=== PATIENT | male | born 1935 | race Caucasian/White ===

== ENCOUNTER 2017-12-02 12:06 | Outpatient (CLI) | payer MEDICARE, OTHER, SELFPAY ==
[2017-12-02 13:08] LABS: Anion Gap 8.7 mmol/L (3-11); BUN 27 mg/dL (7-18); CO2 27.3 mmol/L (21.0-32.0); CREATININE 1.62 mg/dL (0.70-1.30); Calcium 9.5 mg/dL (8.5-10.1); Chloride 106 mmol/L (98-107); Glucose 89 mg/dL (70-100); Magnesium 2.1 mg/dL (1.8-2.4); Potassium 4.3 mmol/L (3.5-5.1); Sodium 142 mmol/L (136-145)
[2017-12-02 14:18] LABS: PROTEIN 19.2 mg/dL
[2017-12-02 14:20] LABS: COMMENT (LAB VIEW ONLY) 135.09 mg/dL; Prot/Crea Ur Ratio 0.14
[2017-12-02 16:11] LABS: Hemoglobin A1C 5.9 % (4.5-6.2)
== END 2017-12-02 12:26 ==
PROVIDERS: PCP Family Medicine; Visit Provider Family Medicine
DX: N18.3 Chronic kidney disease, stage 3 (moderate) (principal)
CPT/HCPCS: 36415; 80048; 82565; 83036; 83735; 84156

== ENCOUNTER 2018-05-25 09:43 | Outpatient (CLI) | payer MEDICARE, OTHER, SELFPAY ==
[2018-05-25 15:00] LABS: BUN 26 mg/dL (7-18); CREATININE 1.66 mg/dL (0.70-1.30); Calcium 9.3 mg/dL (8.5-10.1); Chloride 104 mmol/L (98-107); Estimated GFR 39.96 (mL/min/1.73m2); Glucose 110 mg/dL (70-100); Potassium 4.2 mmol/L (3.5-5.1); Sodium 142 mmol/L (136-145); TSH (W/Ref FT4) 1.99 uIU/mL (0.358-3.74)
== END 2018-05-25 10:03 ==
PROVIDERS: PCP Family Medicine; Visit Provider Family Medicine
DX: N18.3 Chronic kidney disease, stage 3 (moderate) (principal); E03.9 Hypothyroidism, unspecified
CPT/HCPCS: 36415; 80048; 84443

== ENCOUNTER 2018-12-01 10:39 | Outpatient (CLI) | payer MEDICARE, SELFPAY ==
[2018-12-01 11:06] LABS: BUN 24 mg/dL (7-18); CREATININE 1.55 mg/dL (0.70-1.30); Calcium 9.4 mg/dL (8.5-10.1); Chloride 106 mmol/L (98-107); Estimated GFR 43.14 (mL/min/1.73m2); Glucose 101 mg/dL (70-100); Potassium 5.3 mmol/L (3.5-5.1); Sodium 142 mmol/L (136-145)
== END 2018-12-01 10:59 ==
PROVIDERS: PCP Family Medicine; Visit Provider Family Medicine
DX: N18.3 Chronic kidney disease, stage 3 (moderate) (principal)
CPT/HCPCS: 36415; 80048

== ENCOUNTER 2019-03-24 09:26 | Emergency (ER) | payer MEDICARE, SELFPAY ==
[2019-03-24] VITALS (44 sets, daily range): BP systolic 146–179; BP diastolic 48–114; PULSE 40–58; RESP 10–24; TEMP 36.9; O2SAT 91–96
[2019-03-24] MEDS: Mylanta Suspension 30 ML CUP PO (09:53)
[2019-03-24 09:54] LABS: Abs Immature Grans 0.03 k/cumm (0.0-0.09); Absolute Basophil Count 0.04 k/cumm (0.0-0.2); Absolute Lymphocyte Count 1.95 k/cumm (1.2-3.4); Absolute Monocyte Count 0.59 k/cumm (0.11-0.7); Basophils % 0.4; Eosinophils % 0.4; HCT 44.6 % (40.0-50.0); HGB 14.8 g/dL (13.5-17.5); Immature Grans % 0.3 %; Lymphocytes % 17.5; Mean Corp. HGB Concentration 33.2 g/dL (32.0-36.0); Mean Corpuscular Hemoglobin 31.4 pg (27.0-33.0); Mean Corpuscular Volume 94.5 fL (80-95); Mean Platelet Volume 9.4 fL (8.0-11.0); Monocytes % 5.3; Neutrophils % 76.1; Platelet Count 200 x1000/uL (130-400); RBC 4.72 m/cumm (4.50-6.00); RBC Distribution Width 13.8 % (11.8-14.1); White Blood Cell Count 11.16 k/cumm (4.4-10.8)
[2019-03-24 09:55] LABS: Absolute Eosinophil Count 0.04 k/cumm (0.0-0.7); Absolute Neutrophil Count 8.49 k/cumm (1.2-6.7)
[2019-03-24] MEDS: Normal Saline 1,000 ML 125 ML IV (10:00)
--- NOTE | 2019-03-24 10:09 | W.ED.GENAD ---
Discharge Plan Discharge Details Chief Complaint: Chest Pain Primary Care Provider: Vineet Ramos ED Provider: Mo Mir Home Meds and New Rx's Prescriptions: No Action ibuprofen 200 mg tablet 400 mg PO TID-QID PRNRF: 0 triamcinolone acetonide 0.1 % cream 1 applic TP BID RF: 0 clopidogrel [Plavix] 75 mg tablet 75 mg PO DAILY Qty: 90 RF: 3 multivitamin [Daily Multi-Vitamin] 1 EACH tablet 1 ea PO DAILY RF: 0 diphenhydramine HCl [Benadryl Allergy] 25 MG tablet 25 mg PO HS PRNRF: 0 fluticasone propionate [Flonase Allergy Relief] 9.9 ML spray,suspension 1 - 2 spray NS DAILY Qty: 1 RF: 0 albuterol sulfate [ProAir HFA] 8.5 GM HFA aerosol inhaler 1 - 2 puff Inhalation Q4H PRN Qty: 1 RF: 0 metformin 500 MG tablet 500 mg PO DAILY Qty: 180 RF: 6 Cutar 7.5 % emulsion 1 applic TP DAILY RF: 0 ketoconazole 2 % cream 1 applic TP BID RF: 0 losartan 50 mg tablet 50 mg PO DAILY Qty: 90 RF: 3 levothyroxine 50 mcg tablet 50 mcg PO DAILY Qty: 90 RF: 3 pravastatin 40 mg tablet 40 mg PO DAILY Qty: 90 RF: 3 Medical Decision Making 83-year-old gent with a past medical history which includes diabetes and a previous vascular event but with no known history of CAD presents via EMS with persistent chest pain since 0100. Of note, he has been noncompliant with almost all of his chronic medications except for his thyroid medication chest pain somewhat positional nature and on exam has reproducible epigastric tenderness. Otherwise nonfocal exam. 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 Labs significant for an elevated troponin. No significant change in pain with oral Mylanta, aspirin, sublingual nitroglycerin, then a nitroglycerin infusion. He later had mild improvement of symptoms with IV fentanyl. Treated empirically with heparin infusion/bolus and oral clopidogrel load (300mg). Had episodes of bradycardia with no significant change in blood pressure or mentation. Reviewed case with cardiology at [facility] and accepted for emergent transfer/catheterization. Medical Records Medical records reviewed: Yes I reviewed the patient's medical records. Lab Data Lab results reviewed: Yes I reviewed the patient's lab results. Labs: Short CBC 03/24/19 Range/Units 09:45 WBC 11.16 H (4.4-10.8) k/cumm Hgb 14.8 (13.5-17.5) g/dL Hct 44.6 (40.0-50.0) % Plt Count 200 (130-400) x1000/uL BMP 03/24/19 09:45 Sodium 142 Potassium 4.0 Chloride 105 Carbon Dioxide 28.0 BUN 21 H Creatinine 1.41 H Glucose 135 H Calcium 9.9 Cardiac Enzymes 03/24/19 Range/Units 09:45 Troponin I 7.61 H* (<0.06) ng/Ml Liver Function 03/24/19 Range/Units 09:45 Total Bilirubin 0.5 (0.2-1.0) mg/dL AST 56 H (15-37) U/L ALT 35 (16-63) U/L Alkaline Phosphatase 75 (46-116) U/L Albumin 3.8 (3.4-5.0) g/dL ECG Data Attestation: I personally reviewed and interpreted this ECG (s) as follows: Interpretation: Sinus bradycardia, 55 bpm, LAFB. HPI 83-year-old gentleman with a past medical history with a past medical history which includes diabetes, hypertension, CKD, and obesity. He has no known history of CAD. He has a history of intermittent atypical chest/upper abdominal pain which has been intermittent and self-limited. Presents today with persistent waxing and waning pain in the same location which started at 0100. Pain is worse when lying supine and improves when upright. He also occasionally has had increased pain with inspiration. He had intermittent radiation towards the back with initial onset of symptoms. He denies palpitations, dyspnea, diaphoresis, atypical leg pain or swelling, or generalized abdominal pain. He has had no recent change in bowel habits, melena, hematochezia. General Date/Time Provider Initiated Documentation: 03/24/19 09:42. Related Data Home Medications Medication Instructions Recorded Confirmed multivitamin [Daily Multiple 1 ea PO DAILY 06/01/12 03/24/19 Vitamin] diphenhydramine HCl [Benadryl 25 mg PO HS PRN 01/13/15 03/24/19 Allergy] albuterol sulfate [Proair Hfa] 1 - 2 puff INHALATION Q4H PRN #1 04/21/17 03/24/19 inhaler fluticasone propionate [Flonase 1 - 2 spray NS DAILY #1 bottle 04/21/17 03/24/19 Allergy Relief] metformin 500 mg PO DAILY #180 tab-cap 08/29/17 03/24/19 coal tar 7.5 % topical emulsion 1 applic TP DAILY 01/05/18 03/24/19 ketoconazole 2 % topical cream 1 applic TP BID 01/05/18 03/24/19 losartan 50 mg tablet 50 mg PO DAILY #90 tab-cap 03/05/18 03/24/19 levothyroxine 50 mcg tablet 50 mcg PO DAILY #90 tab 04/24/18 03/24/19 pravastatin 40 mg tablet 40 mg PO DAILY #90 tab-cap 04/24/18 03/24/19 ibuprofen 200 mg tablet 400 mg PO TID-QID PRN tab 06/01/18 03/24/19 triamcinolone acetonide 0.1 % 1 applic TP BID 06/01/18 03/24/19 topical cream clopidogrel 75 mg tablet 75 mg PO DAILY #90 tab-cap 12/01/18 03/24/19 Previous Rx's Medication Instructions Recorded albuterol sulfate [Proair Hfa] 1 - 2 puff INHALATION Q4H PRN #1 04/21/17 inhaler fluticasone propionate [Flonase 1 - 2 spray NS DAILY #1 bottle 04/21/17 Allergy Relief] metformin 500 mg PO DAILY #180 tab-cap 08/29/17 losartan 50 mg tablet 50 mg PO DAILY #90 tab-cap 03/05/18 levothyroxine 50 mcg tablet 50 mcg PO DAILY #90 tab 04/24/18 pravastatin 40 mg tablet 40 mg PO DAILY #90 tab-cap 04/24/18 clopidogrel 75 mg tablet 75 mg PO DAILY #90 tab-cap 12/01/18 Allergies Allergy/AdvReac Type Severity Reaction Status Date / Time benazepril AdvReac Intermediate COUGH Verified 03/24/19 09:32 lisinopril [From Zestoretic] AdvReac Intermediate GI pain Verified 03/24/19 09:32 General Stated Complaint: Chest Pain JERRY: 2 Review of Systems All systems reviewed & are unremarkable except as noted in HPI and below PFSH Medical History Abnormal blood sugar (Chronic 06/07/16) h/o diabetic level BS and A1c 2015 Actinic keratosis (Resolved 10/08/11) Dr Motta, LN2 11/2014 Diabetes mellitus (Chronic) Diplopia (Resolved 03/28/15) 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 torn meniscus Delfina Lower urinary tract symptoms (LUTS) (Chronic) WENDY 03/24/15 Morbid obesity (Chronic 03/17/89) BMI 39 Paresthesias in left hand (Resolved 10/13/15) Pure hypercholesterolemia (Chronic 03/17/06) risk calc >20% 12/2006, goal LDL <100; metabolic syndrome Vitamin D deficiency (Chronic 08/30/11) replacement added 08/2011 (along with T4) Surgical History Appendectomy (01/19/1963) Cholecystectomy (01/19/1963) Colonoscopy - IV Sedation (04/21/05) Epigastric Hernia Repair (06/19/02) Family History Mother Essential hypertension Father RA (rheumatoid arthritis) Essential hypertension Heart disease COPD (chronic obstructive pulmonary disease) Son , car accident No problems noted. Son Age: 54 No problems noted. Daughter No problems noted. Daughter No problems noted. Social History Smoking/Tobacco Use Status: Former Tobacco Use Alcohol Intake: current Alcohol Intake frequency: holidays/special occasions only Alcohol type: beer Drug use: Never Substance use type: does not use What is your relationship status?: Panel score (0-1 are the most socially isolated patients): 1 What type of physical activity do you participate in: walking Duration: 45-60 minutes/day Frequency: 3-4 times per week Seatbelt use: always Drive intox or ride w/intox local truck driver: No Working smoke detector in home: Yes Fire extinguisher in home: Yes Carbon monox detector in home: Yes Exam Narrative Exam Narrative: Nursing note and vital signs have been reviewed and noted. GENERAL: alert, active, no acute distress, well -hydrated, well-nourished HEENT: atraumatic/normocephalic, PERRLA, EOMI, conjunctiva clear, external ears/canals normal, nasal mucosa normal NECK: supple, full range of motion, no mass, normal lymphadenopathy, no thyromegaly CARDIOVASCULAR: RRR, no murmurs, nl pulses, no edema PULMONARY: nl effort, no audible wheezing or stridor, nl breath sounds with no focal deficit. no chest wall tenderness ABDOMEN: soft, epigastric tenderness, epigastric palpation reproduced subjective pain., non-distended, no mass, no organomegaly EXTREMITY: normal muscle tone, all joints with FROM, no deformity or tenderness SKIN: no exanthem appreciated NEURO: gross motor exam normal, normal stance and gait PSYCH: alert and oriented, Course Vital Signs Vital signs: Vital Signs Temperature 98.4 F 03/24/19 09:29 Pulse 58 L 03/24/19 09:29 Respiratory Rate 14 03/24/19 09:29 Blood Pressure 179/78 H 03/24/19 09:29 Pulse Oximetry 96 03/24/19 09:29 Temperature 98.4 F 03/24/19 09:29 Temperature Source Skin 03/24/19 09:29 Pulse 53 L 03/24/19 09:30 Pulse 52 L 03/24/19 09:31 Respiratory Rate 19 03/24/19 09:31 Respiratory Effort Non-Labored 03/24/19 09:32 Blood Pressure 179/78 H 03/24/19 09:30 Blood Pressure Mean 103 03/24/19 09:30 Blood Pressure Position Supine 03/24/19 09:29 Pulse Oximetry 95 03/24/19 09:31 Oxygen Delivery Method Room Air 03/24/19 09:29 Oxygen Flow Rate 0 03/24/19 09:29 Pain Level 6 03/24/19 09:29 Lab/Test Results Lab/Test Results: Laboratory Tests Range/Units 03/24/19 09:45 WBC (4.4-10.8) k/cumm 11.16 H RBC (4.50-6.00) m/cumm 4.72 Hgb (13.5-17.5) g/dL 14.8 Hct (40.0-50.0) % 44.6 MCV (80-95) fL 94.5 MCH (27.0-33.0) pg 31.4 MCHC (32.0-36.0) g/dL 33.2 RDW (11.8-14.1) % 13.8 Plt Count (130-400) x1000/uL 200 MPV (8.0-11.0) fL 9.4 Immature Gran % % 0.3 Neutrophils % 76.1 Lymphocytes % 17.5 Monocytes % 5.3 Eosinophils % 0.4 Basophils % 0.4 Absolute Neutrophils (1.2-6.7) k/cumm 8.49 H Absolute Lymphocytes (1.2-3.4) k/cumm 1.95 Absolute Monocytes (0.11-0.7) k/cumm 0.59 Absolute Eosinophils (0.0-0.7) k/cumm 0.04 Absolute Basophils (0.0-0.2) k/cumm 0.04
[2019-03-24 10:14] LABS: ALT 35 U/L (16-63); AST 56 U/L (15-37); Albumin 3.8 g/dL (3.4-5.0); Alkaline Phosphatase 75 U/L (46-116); BUN 21 mg/dL (7-18); Bilirubin, Total 0.5 mg/dL (0.2-1.0); CREATININE 1.41 mg/dL (0.70-1.30); Calcium 9.9 mg/dL (8.5-10.1); Chloride 105 mmol/L (98-107); Estimated GFR 48.12 (mL/min/1.73m2); Glucose 135 mg/dL (74-106); Sodium 142 mmol/L (136-145); Total Protein 7.9 g/dL (6.4-8.2)
[2019-03-24 10:16] LABS: Troponin I 7.61 ng/Ml (<0.06)
[2019-03-24] MEDS: Aspirin 81 MG CHEW (10:22)
[2019-03-24] MEDS: fentaNYL 100 MCG/2 ML VIAL 50 MCG IVP (12:09)
[2019-03-24] MEDS: Clopidogrel 300 MG TAB PO (12:10)
== END 2019-03-24 12:31 ==
LOC: ER 10:17
PROVIDERS: Emergency Provider Emergency Medicine; PCP Family Medicine
DX: I21.4 Non-ST elevation (NSTEMI) myocardial infarction (principal); I44.4 Left anterior fascicular block; Z91.14 Patient's other noncompliance with medication regimen; R00.1 Bradycardia, unspecified; R10.13 Epigastric pain; I12.9 Hypertensive chronic kidney disease with stage 1 through stage 4 chronic kidney disease, or unspecified chronic kidney disease; N18.3 Chronic kidney disease, stage 3 (moderate); E11.22 Type 2 diabetes mellitus with diabetic chronic kidney disease; Z79.84 Long term (current) use of oral hypoglycemic drugs; Z87.891 Personal history of nicotine dependence
CPT/HCPCS: 36415; 80053; 93005; 96361; 96365; 96368; 96375; 96376; 99285; 83735; 84484; 85025; 93010; J3010

== ENCOUNTER 2019-04-01 12:14 | Outpatient (CLI) | payer MEDICARE, SELFPAY ==
[2019-04-01 13:53] LABS: Anion Gap 11.3 mmol/L (3-11); BUN 28 mg/dL (7-18); CO2 24.7 mmol/L (21.0-32.0); CREATININE 1.73 mg/dL (0.70-1.30); Calcium 8.9 mg/dL (8.5-10.1); Chloride 106 mmol/L (98-107); Glucose 98 mg/dL (74-106); Potassium 4.3 mmol/L (3.5-5.1); Sodium 142 mmol/L (136-145)
== END 2019-04-01 12:34 ==
PROVIDERS: PCP Family Medicine; Visit Provider Family Medicine
DX: R79.89 Other specified abnormal findings of blood chemistry (principal)
CPT/HCPCS: 36415; 80048

== ENCOUNTER 2019-04-15 11:13 | Outpatient (RCR) | payer MEDICARE, SELFPAY | END 2019-04-16 23:59 | disposition home or self-care (01) | LOC: CR 11:13 | PROVIDERS: PCP Family Medicine; Visit Provider Family Medicine | DX: Z51.89 Encounter for other specified aftercare (principal) ==

== ENCOUNTER 2019-05-14 13:41 | Outpatient (RCR) | payer MEDICARE, SELFPAY | END 2019-05-15 23:59 | disposition home or self-care (01) | LOC: CR 13:41 | PROVIDERS: PCP Family Medicine; Visit Provider Family Medicine | DX: I25.2 Old myocardial infarction (principal); Z51.89 Encounter for other specified aftercare | CPT/HCPCS: S9472 ==

== ENCOUNTER 2019-05-24 10:00 | Outpatient (RCR) | payer MEDICARE, SELFPAY | END 2019-06-15 23:59 | disposition home or self-care (01) | LOC: CR 10:00 | PROVIDERS: PCP Family Medicine; Visit Provider Family Medicine | DX: I25.2 Old myocardial infarction (principal); Z51.89 Encounter for other specified aftercare | CPT/HCPCS: S9472 ==

== ENCOUNTER 2019-09-10 01:46 | Outpatient (CLI) | payer MEDICARE, SELFPAY ==
[2019-09-10 11:18] LABS: Abs Immature Grans 0.02 k/cumm (0.0-0.09); Absolute Basophil Count 0.04 k/cumm (0.0-0.2); Absolute Eosinophil Count 0.64 k/cumm (0.0-0.7); Absolute Lymphocyte Count 2.39 k/cumm (1.2-3.4); Absolute Monocyte Count 0.65 k/cumm (0.11-0.7); Basophils % 0.5; Eosinophils % 7.8; HCT 42.8 % (40.0-50.0); Immature Grans % 0.2 %; Mean Corp. HGB Concentration 32.7 g/dL (32.0-36.0); Mean Corpuscular Hemoglobin 30.4 pg (27.0-33.0); Mean Platelet Volume 9.9 fL (8.0-11.0); Monocytes % 7.9; Neutrophils % 54.6; Platelet Count 180 x1000/uL (130-400); RBC Distribution Width 14.5 % (11.8-14.1); White Blood Cell Count 8.24 k/cumm (4.4-10.8)
[2019-09-10 12:06] LABS: Anion Gap 6.7 mmol/L (3-11); BUN 21 mg/dL (7-18); CO2 28.3 mmol/L (21.0-32.0); CREATININE 1.68 mg/dL (0.70-1.30); Calcium 9.5 mg/dL (8.5-10.1); Calculated LDL 54 mg/dL (<100); Chloride 106 mmol/L (98-107); Cholesterol 106 mg/dL (<200); Estimated GFR 39.31 (mL/min/1.73m2); Glucose 145 mg/dL (74-106); HDL Cholesterol 32 mg/dL (40-60); Potassium 4.3 mmol/L (3.5-5.1); Sodium 141 mmol/L (136-145); Triglyceride 103 mg/dL (<150)
[2019-09-10 12:30] LABS: TSH (W/Ref FT4) 1.45 uIU/mL (0.36-3.74); Vitamin B12 269 pg/mL (193-986)
== END 2019-09-10 02:06 ==
PROVIDERS: PCP Family Medicine; Visit Provider Family Medicine
DX: E78.00 Pure hypercholesterolemia, unspecified (principal); G47.19 Other hypersomnia; H53.2 Diplopia; I10 Essential (primary) hypertension
CPT/HCPCS: 36415; 80048; 80061; 82607; 84443; 85025

== ENCOUNTER 2021-02-01 18:06 | Outpatient (REF) | payer MEDICARE, SELFPAY ==
[2021-02-02 11:24] LABS: COVID-19 RT-PCR UVMMC Result Negative (Negative)
== END 2021-02-01 18:07 | disposition home or self-care (01) ==
LOC: NCHCN 18:06
PROVIDERS: PCP Family Medicine; Visit Provider Family Medicine
DX: Z20.822 Contact with and (suspected) exposure to COVID-19 (principal)
CPT/HCPCS: U0003; U0005

== ENCOUNTER → 2021-06-07 13:03 | Outpatient (CLI) | payer MEDICARE, SELFPAY ==
--- NOTE | 2021-06-07 12:30 | DI.US_ITS ---
Exam(s) US LOWER EXTREMITY VENOUS LT EXAM: US LOWER EXTREMITY VENOUS LT CLINICAL HISTORY: Tenderness, hardness L femoral triangle, Lt leg pain, M79.605, ? DVT TECHNIQUE: Left lower extremity venous ultrasound performed using grayscale, color-flow, and spectra l Doppler analysis. COMPARISON: No exams were available for comparison FINDINGS: The left common femoral, femoral and popliteal veins demonstrate normal compressibility, augmentation , and color Doppler. The posterior tibial veins are patent. The saphenofemoral junction is unremarka ble. There is no evidence of a Woodruff cyst. The soft tissues are unremarkable. IMPRESSION: No DVT. DATA REPOSITORY:
== END ==
PROVIDERS: PCP Family Medicine; Visit Provider Family Medicine
DX: M79.605 Pain in left leg (principal)
CPT/HCPCS: 93971

== ENCOUNTER 2021-08-27 04:08 | Outpatient (CLI) | payer MEDICARE, SELFPAY ==
[2021-08-27 15:23] LABS: Anion Gap 10.8 mmol/L (3-11); BUN 23 mg/dL (7-18); CO2 23.2 mmol/L (21.0-32.0); CREATININE 1.9 mg/dL (0.70-1.30); Calcium 8.8 mg/dL (8.5-10.1); Chloride 109 mmol/L (98-107); Estimated GFR 33.94 (mL/min/1.73m2); Glucose 158 mg/dL (74-106); Potassium 3.9 mmol/L (3.5-5.1); Sodium 143 mmol/L (136-145); TSH (W/Ref FT4) 1.31 uIU/mL (0.36-3.74)
== END 2021-08-27 04:09 | disposition home or self-care (01) ==
LOC: LBO 04:08
PROVIDERS: PCP Family Medicine; Visit Provider Family Medicine
DX: E03.9 Hypothyroidism, unspecified (principal); N18.30 Chronic kidney disease, stage 3 unspecified; M16.12 Unilateral primary osteoarthritis, left hip
CPT/HCPCS: 36415; 80048; 99214; 73502; 84443

== ENCOUNTER 2021-08-27 08:42 | Outpatient (CLI) | payer MEDICARE, SELFPAY ==
--- NOTE | 2021-08-27 08:00 | DI.RAD_ITS ---
Exam(s) XR HIP LT COMPLETE AP PELVIS EXAM: XR HIP LT COMPLETE AP PELVIS INDICATION: pain in left hip. COMPARISON: No exams were available for comparison TECHNIQUE: 2D digital imaging was performed. Three views. FINDINGS: The hip joint spaces are well maintained. There is bilateral acetabular spurring. Enthesophytes are seen at the greater trochanters and iliac wings. The SI joints and pubic symphysis appear intact. IMPRESSION: Ezzn-hs-glalfyyt degenerative changes of both hips. DATA REPOSITORY: RADIATION DOSE DELIVERED:
== END 2021-08-27 08:43 | disposition home or self-care (01) ==
LOC: DIORS 08:44
PROVIDERS: PCP Family Medicine; Referring Provider Family Medicine; Visit Provider Physician Assistant Surgical
DX: M16.12 Unilateral primary osteoarthritis, left hip (principal)
CPT/HCPCS: 73502

== ENCOUNTER → 2021-09-20 02:19 | Outpatient (CLI) | payer MEDICARE, SELFPAY ==
--- NOTE | 2021-09-20 08:15 | DI.RAD_ITS ---
Exam(s) RF JOINT INJECTION FLUORO GUID EXAM: RF JOINT INJECTION FLUORO GUID CLINICAL HISTORY: L HIP INJ UNDER FLUORO,oa lt hip, pain, m16.12 TECHNIQUE: Fluoroscopy provided. Radiologist not present. CONTRAST MATERIAL: None COMPARISON: No exams were available for comparison FINDINGS: Fluoroscopy was provided for therapeutic left hip injection. Please refer to the procedure report for complete details. Cumulative Dose: Ka,r=2.42 mGy IMPRESSION: RADIATION DOSE DELIVERED:
--- NOTE | 2021-09-20 14:29 | W.PROCNOTE ---
Date of service: 09/20/21 Time of Service: 14:29 Procedure Note Date of procedure: 09/20/21 Procedure: Left Hip Injection with Fluoroscopic Guidance Surgeon/Proceduralist/Physician: Jonny Henry Procedure Diagnosis: Left Hip Osteoarthritis Procedure Indications: Mr. Ford has had persistent pain of the LEFT hip and groin. Noninvasive measures have been tried. To serve as both diagnostic and therapeutic, an injection under fluoroscopy was recommended. I had discussed the risks of the procedure and the patient elected to proceed. Procedure Description: Mr. Ford was greeted in the flouroscopy room. The correct side was identified and the consent was reviewed with the patient and signed. The patient was then placed in the supine position on the fluoroscopy table. The LEFT hip was then prepped with Chloraprep. The anterolateral injection starting point was identiifed by bony landmarks and fluoroscopy. The skin and soft tissue in the tract of the injection was anesthetized with 1% Lidocaine. A spinal needle was then inserted deep into the hip joint at the level of the lateral femoral neck under fluoroscopic guidance. A small amount of Omnipaque solution was injected to confirm intraarticular placement. Once confirmed, the hip was injected with 6cc of 0.5% Bupivicaine and 80mg of Depo-Medrol. A bandaid was placed on the injection site. The patient tolerated the procedure well.
[2021-09-20] MEDS: Bupivacaine 0.5% Pres-Free 10 ML VIAL 5 ML IJ (14:44)
[2021-09-20] MEDS: methylPREDNISolone ACETATE 80 MG/ML VIAL IM (14:44)
[2021-09-20] MEDS: Omnipaque 300 MG/ML 10 ML BTL IJ (14:45)
== END ==
PROVIDERS: PCP Family Medicine; Visit Provider Student in an Organized Health Care Education/Training Program
DX: M16.12 Unilateral primary osteoarthritis, left hip (principal); M25.552 Pain in left hip
CPT/HCPCS: 20610; 77002; J1040

== ENCOUNTER 2022-10-25 10:02 | Outpatient (CLI) | payer MEDICARE, SELFPAY ==
--- NOTE | 2022-10-25 10:00 | RT.EKG_ITS ---
APPROVED REPORT Exam: Resting ECG Reason for Exam: Request for pre-op exam Patient Location: O HR:54 bpm ECG Measurements Heart Rate 54 AXIS FL 233 P -39 QRSd 122 QRS -74 QT 412 T 69 QTc 391 Conclusion Sinus rhythm...normal P axis, V-rate 50- 99 Prolonged FL interval...FL >220, V-rate 50- 90 Possible inferior infarct, old...Q >35mS, II III aVF Consider anterior infarct...Q >30mS in V2-V5
== END 2022-10-25 10:03 | disposition home or self-care (01) ==
LOC: DI.KIM 10:03
PROVIDERS: PCP Family Medicine; Visit Provider Family Medicine
DX: Z01.818 Encounter for other preprocedural examination (principal)
CPT/HCPCS: 93010

== ENCOUNTER 2022-11-25 02:06 | Outpatient (CLI) | payer MEDICARE, SELFPAY ==
[2022-11-25 14:37] LABS: Anion Gap 6.6 mmol/L (3-11); BUN 22 mg/dL (7-18); CO2 29.4 mmol/L (21.0-32.0); CREATININE 1.4 mg/dL (0.70-1.30); Calcium 9.1 mg/dL (8.5-10.1); Chloride 107 mmol/L (98-107); Estimated GFR 48.95 (mL/min/1.73m2); Glucose 123 mg/dL (74-106); Sodium 143 mmol/L (136-145); TSH (W/Ref FT4) 1.29 uIU/mL (0.36-3.74); Vitamin B12 442 pg/mL (193-986)
== END 2022-11-25 02:07 | disposition home or self-care (01) ==
LOC: LBO 02:07
PROVIDERS: PCP Family Medicine; Visit Provider Family Medicine
DX: E03.9 Hypothyroidism, unspecified (principal); R27.0 Ataxia, unspecified; N18.31 Chronic kidney disease, stage 3a
CPT/HCPCS: 36415; 80048; 82607; 84443

== ENCOUNTER 2023-01-10 16:04 | Outpatient (REF) | payer MEDICARE, SELFPAY ==
[2023-01-10 13:46] LABS: Source Nasal/Nares
[2023-01-10 16:23] LABS: COVID-19 PCR Negative (Negative)
== END 2023-01-10 16:05 | disposition home or self-care (01) ==
LOC: LBN 16:04
PROVIDERS: PCP Family Medicine; Visit Provider Physician Assistant Medical
DX: R58 Hemorrhage, not elsewhere classified (principal); J02.9 Acute pharyngitis, unspecified
CPT/HCPCS: 87635; 87070

== ENCOUNTER 2024-05-08 10:46 | Emergency (ER) | payer MEDICARE, SELFPAY ==
[2024-05-08] VITALS (41 sets, daily range): BP systolic 139–177; BP diastolic 45–75; PULSE 45–87; RESP 10–23; TEMP 36.7; O2SAT 91–100
--- NOTE | 2024-05-08 10:45 | RT.EKG_ITS ---
APPROVED REPORT Exam: Resting ECG Reason for Exam: bradycardia, fall Patient Location: E HR:49 bpm ECG Measurements Heart Rate 49 AXIS AZ 292 P 32 QRSd 128 QRS -67 QT 412 T 32 QTc 373 Conclusion Sinus bradycardia...rate< 60 Prolonged AZ interval...AZ >230, V-rate 30- 49 Left bundle branch block...QRSd>120, broad/notched R No STEMI
--- NOTE | 2024-05-08 11:26 | ED.GENADUL_ITS ---
Discharge Plan Discharge Details Chief Complaint: Fall/Non TraumaCriteria Clinical Impression: Falls frequently Primary Care Provider: Vineet Ramos ED Provider: Mia Hughes Home Meds and New Rx's Prescriptions: No Action acetaminophen 500 mg tablet 1,000 mg PO Q6H PRN loratadine 10 mg tablet 10 mg PO DAILY PRN (Reason: allergy symptoms) Qty: 90 0RF albuterol sulfate [ProAir HFA] 90 mcg/actuation HFA aerosol inhaler 1 - 2 puff Inhalation Q4H PRN Qty: 1 6RF Rx Instructions: DX: BRONCHOSPASM losartan 50 mg tablet 50 mg PO DAILY Qty: 90 3RF Rx Instructions: to control BP under 140/85 pantoprazole 40 mg tablet,delayed release (DR/EC) 40 mg PO DAILY Qty: 90 3RF nitroglycerin 0.4 mg tablet, sublingual 0.4 mg SL Q5-15M PRN (Reason: chest pain) Qty: 45 3RF simethicone 250 mg capsule 250 mg PO DAILY PRN (Reason: abdominal distention) Qty: 90 3RF melatonin 5 mg tablet 5 mg PO HS PRN (Reason: sleep) Qty: 90 3RF levothyroxine 50 mcg tablet 50 mcg PO DAILY Qty: 90 3RF Rx Instructions: to replace low thyroid multivitamin [Daily Multi-Vitamin] 1 EACH tablet 1 ea PO DAILY fluticasone propionate [Flonase Allergy Relief] 9.9 ML spray,suspension 1 - 2 spray NS DAILY Qty: 1 0RF Rx Instructions: DX: POST-NASAL DRIP, COUGH aspirin 81 mg tablet,delayed release (DR/EC) 81 mg PO DAILY Rx Instructions: [place] 03/30/19 [facility] [place]su[place] 20 mg tablet See Rx Instructions .ROUTE .COMPLEX Qty: 90 3RF Dose Instruction: TAKE ONE TABLET BY MOUTH EVERY DAY Rx Instructions: TAKE ONE TABLET BY MOUTH EVERY DAY metformin 500 mg tablet See Rx Instructions .ROUTE .COMPLEX Qty: 180 3RF Dose Instruction: TAKE ONE TABLET BY MOUTH TWICE A DAY BEFORE MEALS Rx Instructions: TAKE ONE TABLET BY MOUTH TWICE A DAY BEFORE MEALS apixaban 2.5 mg tablet 2.5 mg PO BID Qty: 180 3RF HPI General Mode of arrival: EMS . Date/Time Provider Initiated Documentation: 05/08/24 10:47 . Limitations to Documentation: no limitations . Information obtained by: patient, family, EMS, RN notes reviewed and old records reviewed . HPI Narrative: 88-year-old male presents to the ER via EMS with chief complaint of multiple falls in the last couple of days. Family reports that he fell twice yesterday after getting out of a car going to the inside and then fell once today. Yesterday the falls were witnessed and were mechanical. Today the fall was unwitnessed family found him on the floor next to his bed. Patient states that he was trying to take his pajamas off when he lost his balance and fell over. He denies hitting his head or loss of consciousness. He he was unable to get up after the fall and laid on the ground for approximately an hour and a half. He reports that his left leg has been giving out. He does have pain with standing. He does take Eliquis does have a history of A-fib, NSTEMI, diabetes, stage III chronic kidney disease. Denies any chest pain or abdominal pain. Related Data Home Medications ?Medication ?Instructions ?Recorded ?Confirmed multivitamin (Daily Multi-Vitamin 1 ea PO DAILY 06/01/12 05/08/24 tablet) fluticasone propionate 50 1 - 2 spray NS DAILY ##1 04/21/17 05/08/24 mcg/actuation nasal spray,suspension (Flonase Allergy Relief) aspirin 81 mg tablet,delayed 81 mg PO DAILY 03/31/19 05/08/24 release albuterol sulfate 90 mcg/actuation 1 - 2 puff inhalation Q4H PRN ##1 02/22/21 05/08/24 aerosol inhaler (ProAir HFA) acetaminophen 500 mg tablet 1,000 mg PO Q6H PRN 01/18/22 05/08/24 rosuvastatin 20 mg tablet See Rx Instructions .Route 05/09/22 05/08/24 .COMPLEX #90 tabs loratadine 10 mg tablet 10 mg PO DAILY PRN allergy 09/26/22 05/08/24 symptoms #90 tabs metformin 500 mg tablet See Rx Instructions .Route 08/28/23 05/08/24 .COMPLEX #180 tabs losartan 50 mg tablet 50 mg PO DAILY #90 tab-caps 11/07/23 05/08/24 melatonin 5 mg tablet 5 mg PO HS PRN sleep #90 tabs 11/07/23 05/08/24 nitroglycerin 0.4 mg sublingual 0.4 mg sublingual Q5-15M PRN chest 11/07/23 05/08/24 tablet pain #45 tabs pantoprazole 40 mg tablet,delayed 40 mg PO DAILY #90 tabs 11/07/23 05/08/24 release simethicone 250 mg capsule 250 mg PO DAILY PRN abdominal 11/07/23 05/08/24 distention #90 caps apixaban 2.5 mg tablet 2.5 mg PO BID #180 tabs 11/14/23 05/08/24 levothyroxine 50 mcg tablet 50 mcg PO DAILY #90 tabs 03/18/24 05/08/24 Previous Rx's ?Medication ?Instructions ?Recorded fluticasone propionate 50 1 - 2 spray NS DAILY ##1 04/21/17 mcg/actuation nasal spray,suspension (Flonase Allergy Relief) albuterol sulfate 90 mcg/actuation 1 - 2 puff inhalation Q4H PRN ##1 02/22/21 aerosol inhaler (ProAir HFA) rosuvastatin 20 mg tablet See Rx Instructions .Route 05/09/22 .COMPLEX #90 tabs loratadine 10 mg tablet 10 mg PO DAILY PRN allergy 09/26/22 symptoms #90 tabs metformin 500 mg tablet See Rx Instructions .Route 08/28/23 .COMPLEX #180 tabs losartan 50 mg tablet 50 mg PO DAILY #90 tab-caps 11/07/23 melatonin 5 mg tablet 5 mg PO HS PRN sleep #90 tabs 11/07/23 nitroglycerin 0.4 mg sublingual 0.4 mg sublingual Q5-15M PRN chest 11/07/23 tablet pain #45 tabs pantoprazole 40 mg tablet,delayed 40 mg PO DAILY #90 tabs 11/07/23 release simethicone 250 mg capsule 250 mg PO DAILY PRN abdominal 11/07/23 distention #90 caps apixaban 2.5 mg tablet 2.5 mg PO BID #180 tabs 11/14/23 levothyroxine 50 mcg tablet 50 mcg PO DAILY #90 tabs 03/18/24 Allergies Allergy/AdvReac Type Severity Reaction Status Date / Time benazepril AdvReac Intermediate COUGH Verified 05/08/24 10:41 lisinopril (From Zestoretic) AdvReac Intermediate GI pain Verified 05/08/24 10:41 General Stated Complaint: Fall/Non TraumaCriteria JERRY: 3 Review of Systems All systems reviewed & are unremarkable except as noted in HPI and below Constitutional Constitutional: Reports as per HPI, Reports frequent falls and Reports weakness Cardiovascular Cardiovascular: Denies chest pain Respiratory Respiratory: Reports cough Musculoskeletal Musculoskeletal: Reports as per HPI and Reports arthralgias (Left leg) Neurologic Neurologic: Reports frequent falls and Reports weakness Exam Narrative Exam Narrative: Constitutional: Alert and oriented x3. Appears stated age. Overweight body habitus. Head: Normocephalic, no trauma. Eyes: Pupils PERRL, Red reflex noted, EOM's intact. Does have drooping left eyelid, ENT: Bilateral TM's WNL, External ear normal to inspection, no mastoid TTP, swelling, or erythema, Nasal turbinates WNL, no nasal discharge. Normal dentition, Posterior pharynx WNL, no exudate. Dry mucous membranes. Chest: RRR, Normal S1, S2, distal pulses intact. Resp: Lungs clear to auscultation bilaterally, no wheezes, rales, or rhonchi. Abdomen: Soft, non-distended, Normoactive bowel sounds all 4 quads. Musculoskeletal: Ataxic gait, shuffles Skin: Capillary refill less than 2 sec. Neurologic: Cranial nerves II-XII intact. Alert and oriented x 3. Motor: No deficits noted. Sensory: Intact bilaterally all 4 extremities. Generalized weakness. Hematologic/Lymphatic: No ecchymosis, no lymphadenopathy. Course Vital Signs Vital signs: Vital Signs Temperature 36.7 C 05/08/24 10:34 Pulse 58 L 05/08/24 10:34 Respiratory Rate 05/08/24 10:34 Blood Pressure 163/72 H 05/08/24 10:34 Pulse Oximetry 96 05/08/24 10:34 Temperature 36.7 C 05/08/24 10:34 Temperature Source Oral 05/08/24 10:34 Pulse 58 L 05/08/24 10:34 Respiratory Rate 05/08/24 10:34 Blood Pressure 163/72 H 05/08/24 10:34 Blood Pressure Position Sitting 05/08/24 10:34 Pulse Oximetry 96 05/08/24 10:34 Oxygen Delivery Method Room Air 05/08/24 10:34 Oxygen Flow Rate 0 05/08/24 10:34 Medical Decision Making 88-year-old male presents to the ER via EMS with chief complaint of multiple falls in the last couple of days. Family reports that he fell twice yesterday after getting out of a car going to the inside and then fell once today. Yesterday the falls were witnessed and were mechanical. Today the fall was unwitnessed family found him on the floor next to his bed. Patient states that he was trying to take his pajamas off when he lost his balance and fell over. He denies hitting his head or loss of consciousness. He he was unable to get up after the fall and laid on the ground for approximately an hour and a half. He reports that his left leg has been giving out. He does have pain with standing. He does take Eliquis does have a history of A-fib, NSTEMI, diabetes, stage III chronic kidney disease. Denies any chest pain or abdominal pain. At this time will order home health and outpatient physical therapy. I did discuss the workup findings with family. They verbalized understanding. Discussed labs and imaging. Patient was able to get up to the bedside commode with assistance for event staff. Patient reports being tired. Labs are noted below. Negative serial troponins no UTI. I did discuss the lung nodules that need to be followed up on family verbalized understanding. Will order home health for frequent falls, NSTEMI, Weakness, A-fib, uses a cane normally. 1513: Physical therapy at bedside for evaluation. 1548: Will page hospitalist for admission he did fail the physical therapy eval. Patient is unsteady even with a walker. Per physical therapist he is complaining of his left knee hurting. This was imaged with his femur no obvious fracture. Spoke with Dr. Khan regarding patient case he recommends further imaging of his knee and lower extremity. CT of his left lower extremity ordered to rule out occult fracture. Will handoff care to CINDY Bell pending CT results and we discussion with hospitalist. Medical Records Medical records reviewed: Yes I reviewed the patient's medical records. Imaging Data Radiologic Study: Imaging: X-Ray Radiologist's impression: TECHNIQUE: Imaging protocol: Radiologic exam of the left femur. Views: 2 views. COMPARISON: CR XR PELVIS AP 05/08/2024 1:25 PM FINDINGS: Bones/joints: Mild degenerative changes at the hip joint. Enthesophytes along the anterior patella. No acute fracture or dislocation. Soft tissues: Unremarkable. IMPRESSION: No acute findings. Thank you for allowing us to participate in the care of your patient. Dictated and Authenticated by: Taylor Mabry MD Radiologic Study #2: Imaging: CT Scan Radiologist's impression: IMPRESSION: 1. No acute traumatic injury. 2. Soft tissue nodule adjacent to the anterior right bladder measures 2.9 x 2.3 cm. Additional nodule posterior to the rectum measures 1.6 x 2.1 cm. May be enlarged lymph nodes, metastatic disease should be excluded. 3. Mildly enlarged lymph nodes along the left iliac chain, largest measuring 1.5 cm in short axis. 4. Prostate gland enlarged and heterogeneous, measuring 5.3 x 6.5 cm. Recommend correlation with PSA.Thank you for allowing us to participate in the care of your patient. Dictated and Authenticated by: Taylor Mabry MD Radiologic Study #3: Imaging: CT Scan Radiologist's impression: FINDINGS: Brain: There is no acute intracranial hemorrhage. There are no extra- axial fluid collections. There is mild lucency in the cerebral white matter, likely microvascular disease although non-specific. Nunez white differentiation is intact. No evidence of mass. There is no mass effect or midline shift. Cerebral ventricles: The ventricles and sulci are enlarged, consistent with age- related volume loss / atrophy. No hydrocephalus. Paranasal sinuses: Mild mucosal thickening in paranasal sinuses. Mastoid air cells: No significant mastoid effusion. Bones: Unremarkable. No acute fracture. Soft tissues: Unremarkable as visualized. Vasculature: There is vascular calcification. IMPRESSION: 1. No evidence of acute intracranial abnormality. No evidence of acute infarction, hemorrhage, or mass. 2. Senescent changes. FINDINGS: Bones: There are uncinate and facet osteophytes with moderate or severe neural foraminal narrowing C3-C4 through C6-C7 which is greatest and severe bilateral C3-C4, bilateral C5-C6 left C6-C7. Likely no severe spinal stenosis. Lungs: Partially visualized approximately 5 mm as visualized nodular opacity in anterior left upper lobe please see report of chest CT. Soft tissues: Unremarkable. IMPRESSION: No acute fracture. Thank you for allowing us to participate in the care of your patient. Dictated and Authenticated by: Amada Gay MD Lab Data Lab results reviewed: Yes I reviewed the patient's lab results. Labs: Laboratory Tests Range/Units 05/08/24 05/08/24 05/08/24 11:54 12:25 12:55 WBC (4.4-10.8) 10^3/uL 11.77 H RBC (4.36-5.78) 10^6/uL 4.81 Hgb (13.5-17.5) g/dL 15.3 Hct (40.0-50.0) % 47.3 MCV (80-95) fL 98 H MCH (27.0-33.0) pg 31.8 MCHC (32.0-36.0) % 32.3 RDW (11.8-14.1) % 13.2 Plt Count (130-400) 10^3/uL 168 MPV (8.0-11.0) fL 9.7 Immature Gran % % 0.3 Neutrophils % % 77.2 Lymphocytes % % 13.3 Monocytes % % 7.3 Eosinophils % % 1.4 Basophils % % 0.5 Nucleated RBC % (0.0-0.3) % 0.0 Absolute Neutrophils (1.2-6.7) 10^3/uL 9.09 H Absolute Lymphocytes (1.2-3.4) 10^3/uL 1.57 Absolute Monocytes (0.1-0.8) 10^3/uL 0.86 H Absolute Eosinophils (0.0-0.7) 10^3/uL 0.16 Absolute Basophils (0.0-0.2) 10^3/uL 0.06 PT (9.1-11.1) sec 10.6 INR (0.9-1.1) 1.1 APTT (20.6-30.2) sec 25.5 Sodium (136-145) mmol/L 142 Potassium (3.5-5.1) mmol/L 4.7 Chloride (98-107) mmol/L 107 Carbon Dioxide (21.0-32.0) mmol/L 27.1 Anion Gap (3-11) mmol/L 7.9 BUN (7-18) mg/dL 25 H Creatinine (0.70-1.30) mg/dL 1.9 H Est GFR (CKD-EPI 2020) (mL/min/1.73m2) 33.72 Glucose (74-106) mg/dL 106 Calcium (8.5-10.1) mg/dL 10.3 H Magnesium (1.8-2.4) mg/dL 1.7 L Total Bilirubin (0.2-1.0) mg/dL 0.68 AST (15-37) U/L 28 ALT (16-63) U/L 26 Alkaline Phosphatase (46-116) U/L 76 Troponin I (<or=76) ng/L 56 48 Total Protein (6.4-8.2) g/dL 7.9 Albumin (3.4-5.0) g/dL 3.9 Urine Color (Yellow) Yellow Urine Clarity (Clear) Clear Urine pH (5-8) 5.0 Ur Specific [place] (1.005-1.025) 1.020 Urine Protein (Neg-Trace) mg/dL 30 H Urine Ketones (Negative) mg/dL Negative Urine Blood (Negative) Negative Urine Nitrite (Negative) Negative Urine Bilirubin (Negative) Negative Urine Urobilinogen (Up to 0.2) mg/dL 0.2 Ur Leukocyte Esterase (Negative) Negative Urine RBC (0-2) HPF Negative Urine WBC (0-5) HPF 0-2 Ur Epithelial Cells (Negative) HPF Negative Urine Crystals (Negative) HPF Negative Urine Bacteria (Negative) HPF Rare Urine Casts (Negative) LPF 0-2 Hyaline Urine Mucus (Negative) Moderate Urine Other (Negative) Negative Ur Culture Indicated? No Urine Glucose (Negative) mg/dL Negative Range/Units 05/08/24 13:51 WBC (4.4-10.8) 10^3/uL RBC (4.36-5.78) 10^6/uL Hgb (13.5-17.5) g/dL Hct (40.0-50.0) % MCV (80-95) fL MCH (27.0-33.0) pg MCHC (32.0-36.0) % RDW (11.8-14.1) % Plt Count (130-400) 10^3/uL MPV (8.0-11.0) fL Immature Gran % % Neutrophils % % Lymphocytes % % Monocytes % % Eosinophils % % Basophils % % Nucleated RBC % (0.0-0.3) % Absolute Neutrophils (1.2-6.7) 10^3/uL Absolute Lymphocytes (1.2-3.4) 10^3/uL Absolute Monocytes (0.1-0.8) 10^3/uL Absolute Eosinophils (0.0-0.7) 10^3/uL Absolute Basophils (0.0-0.2) 10^3/uL PT (9.1-11.1) sec INR (0.9-1.1) APTT (20.6-30.2) sec Sodium (136-145) mmol/L Potassium (3.5-5.1) mmol/L Chloride (98-107) mmol/L Carbon Dioxide (21.0-32.0) mmol/L Anion Gap (3-11) mmol/L BUN (7-18) mg/dL Creatinine (0.70-1.30) mg/dL Est GFR (CKD-EPI 2020) (mL/min/1.73m2) Glucose (74-106) mg/dL Calcium (8.5-10.1) mg/dL Magnesium (1.8-2.4) mg/dL Total Bilirubin (0.2-1.0) mg/dL AST (15-37) U/L ALT (16-63) U/L Alkaline Phosphatase (46-116) U/L Troponin I (<or=76) ng/L Cancelled Total Protein (6.4-8.2) g/dL Albumin (3.4-5.0) g/dL Urine Color (Yellow) Urine Clarity (Clear) Urine pH (5-8) Ur Specific [place] (1.005-1.025) Urine Protein (Neg-Trace) mg/dL Urine Ketones (Negative) mg/dL Urine Blood (Negative) Urine Nitrite (Negative) Urine Bilirubin (Negative) Urine Urobilinogen (Up to 0.2) mg/dL Ur Leukocyte Esterase (Negative) Urine RBC (0-2) HPF Urine WBC (0-5) HPF Ur Epithelial Cells (Negative) HPF Urine Crystals (Negative) HPF Urine Bacteria (Negative) HPF Urine Casts (Negative) LPF Urine Mucus (Negative) Urine Other (Negative) Ur Culture Indicated? Urine Glucose (Negative) mg/dL Quality:SDOH Health Related Social Needs: No Data to Display PFSH All Active Problems (Updated 05/08/24 @ 15:52 by Mia Hughes NP) Falls frequently (Acute) Insomnia (Acute) Bilateral sensorineural hearing loss (Acute) Excessive cerumen in both ear canals (Acute) Ectropion of left lower eyelid (Acute) Osteoarthritis of left hip (Acute) Leg pain (Acute) Tinea cruris (Acute) Excessive daytime sleepiness (Acute) Atrial fibrillation (Chronic) Transient during SC Non-ST elevation (NSTEMI) myocardial infarction (Acute 03/24/19) Secondary to emboli, no CAD Diabetes mellitus (Chronic) 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 [place] Dermatology Vitamin D deficiency (Chronic 08/30/11) replacement added 08/2011 (along with T4) Pure hypercholesterolemia (Chronic 03/17/06) risk calc >20% 12/2006, goal LDL <100; metabolic syndrome Morbid obesity (Chronic 03/17/89) BMI 39 Lower urinary tract symptoms (LUTS) (Chronic) WENDY 03/24/15 Kidney disease, chronic, stage III (moderate, 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 Motta 04/14/23 History of malignant melanoma Mohs surgery October 2021 Surgical History Ectropion of left eye (11/13/22) [place] [facility] [place] Chow[place] H/O Mohs micrographic surgery for skin cancer 11/12/21 per [facility] [place] biopsy proven melanoma in-situ located on the left medial cheek 12/18/21: Scar revision left lower eyelid [place] [facility] [place] Epigastric Hernia Repair (06/19/02) Colonoscopy - IV Sedation (04/21/05) Cholecystectomy (01/19/1963) Appendectomy (01/19/1963) Family History Mother Essential hypertension Father RA (rheumatoid arthritis) Essential hypertension Heart disease COPD (chronic obstructive pulmonary disease) Son , car accident No problems noted. Son Age: 59 No problems noted. Daughter No problems noted. Daughter No problems noted. Social History Smoking/Tobacco Use Status: Former Tobacco Use Quit status: quit date established (51 years ago) Smoking risk assessment performed?: Yes Alcohol Intake: never Drug use: Never Substance use type: does not use Adopted: No Caregiver/Support person: No Foster care: No Household members: spouse and other Details: son - disabled Housing: house Number of Children: 4 number of grandchildren: 5 Communication Needs: Hard of Hearing and Corrective Lenses Education Level: high school Do you need help understanding health information?: Never current occupation: retired from [employer] Pets and animals: Yes (2) Pets and animals: cat(s) Sexually active: No Do you think of yourself as: straight/heterosexual Current gender identity: male What is your relationship status?: How often do you talk on the phone with friends or family?: three or more times per week How often do you get together with friends or relatives?: never Do you belong to any clubs or organized social groups?: yes Panel score (0-1 are the most socially isolated patients): 3 What type of physical activity do you participate in: walking Duration: 15-30 minutes/day Frequency: 1-2 times per week Ladan/Orthodoxy: Mormon Special ladan needs: No Agree to transfusion: Yes Seatbelt use: always Helmet use: No (N/A) Drive intox 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
[2024-05-08 12:00] LABS: Abs Immature Grans 0.04 10^3/uL (0.0-0.06); Absolute Basophil Count 0.06 10^3/uL (0.0-0.2); Absolute Monocyte Count 0.86 10^3/uL (0.1-0.8); Basophils % 0.5 %; Eosinophils % 1.4 %; HCT 47.3 % (40.0-50.0); HGB 15.3 g/dL (13.5-17.5); Immature Grans % 0.3 %; Lymphocytes % 13.3 %; MCH 31.8 pg (27.0-33.0); MCHC 32.3 % (32.0-36.0); MCV 98 fL (80-95); MPV 9.7 fL (8.0-11.0); Monocytes % 7.3 %; Neutrophils % 77.2 %; Platelet Count 168 10^3/uL (130-400); RBC 4.81 10^6/uL (4.36-5.78); RDW 13.2 % (11.8-14.1); RDW-SD 48.1 fL; WBC 11.77 10^3/uL (4.4-10.8)
[2024-05-08 12:06] LABS: Absolute Eosinophil Count 0.16 10^3/uL (0.0-0.7); Absolute Lymphocyte Count 1.57 10^3/uL (1.2-3.4); Absolute Neutrophil Count 9.09 10^3/uL (1.2-6.7)
[2024-05-08 12:32] LABS: Bilirubin Negative (Negative); Blood Negative (Negative); Clarity Clear (Clear); Glucose Negative (Negative); Ketones Negative (Negative); Leukocyte Esterase Negative (Negative); Nitrite Negative (Negative); Urobilinogen 0.2 mg/dL (Up to 0.2)
[2024-05-08 12:38] LABS: ALT 26 U/L (16-63); AST 28 U/L (15-37); Albumin 3.9 g/dL (3.4-5.0); Alkaline Phosphatase 76 U/L (46-116); Anion Gap 7.9 mmol/L (3-11); BUN 25 mg/dL (7-18); Bilirubin, Total 0.68 mg/dL (0.2-1.0); CO2 27.1 mmol/L (21.0-32.0); CREATININE 1.9 mg/dL (0.70-1.30); Calcium 10.3 mg/dL (8.5-10.1); Chloride 107 mmol/L (98-107); Estimated GFR 33.72 (mL/min/1.73m2); Glucose 106 mg/dL (74-106); INR 1.1 (0.9-1.1); Magnesium 1.7 mg/dL (1.8-2.4); PTT Activated 25.5 sec (20.6-30.2); Potassium 4.7 mmol/L (3.5-5.1); Prothrombin Time 10.6 sec (9.1-11.1); Sodium 142 mmol/L (136-145); Total Protein 7.9 g/dL (6.4-8.2); Troponin I 56 ng/L (<or=76)
[2024-05-08 12:43] LABS: Epithelial Cells Negative HPF (Negative); RBC Negative HPF (0-2); WBC 0-2 HPF (0-5)
[2024-05-08 12:44] LABS: Bacteria Rare HPF (Negative); C & S Indicated? No; Casts 0-2 Hyaline LPF (Negative); Crystals Negative HPF (Negative); Mucus Moderate (Negative); Other Cells Negative (Negative)
[2024-05-08] MEDS: Normal Saline - Diluent 50 ML VIAL IJ (12:57)
[2024-05-08] MEDS: Normal Saline 500 ML IV (12:59)
[2024-05-08] MEDS: Omnipaque 350 MG/ML 100 ML BTL IJ (13:15)
[2024-05-08 13:22] LABS: Troponin I 48 ng/L (<or=76)
--- NOTE | 2024-05-08 13:27 | DI.CT_ITS ---
Exam(s) CT CHEST/ABD/PEL W EXAM: CT CHEST/ABD/PEL W CLINICAL HISTORY: Multiple falls, TECHNIQUE: Imaging Protocol: Axial computed tomography images with coronal and sagittal reformatted images were created and reviewed. Lung Computer Aided Detection (CAD) was utilized. CONTRAST MATERIAL: Intravenous: Omnipaque 350 contrast volume:100 mL Oral: No COMPARISON: CT RENAL COLIC WO CONTRAST from 06/10/2010 CT HEAD WITHOUT CONTRAST from 01/14/2013 FINDINGS: The examination is limited due to patient motion artifact. CHEST: Tracheobronchial tree: Patent where visualized. No evidence of bronchiectasis. Pulmonary parenchyma: There are several pulmonary nodules present. The largest nodule on the right m easures 1 cm and is located in the right middle lobe. There is a 1.1 cm area of nodularity along the left major fissure in the superior segment of the left lower lobe. Atelectatic changes are seen in the dependent portions of the lungs. No focal consolidating infiltrate is seen. No architectural di stortion. Visualized thyroid gland: Unremarkable. Mediastinum and Cinthya: No dominant adenopathy or fluid collection. The esophagus is unremarkable. Pleura: No effusion or pneumothorax. Heart: Cardiomegaly. Three vessel coronary artery calcification is present. No pericardial effusion . Pulmonary arteries: Due to the timing of the bolus, pulmonary artery opacification is suboptimal for evaluation of pulmonary emboli. No large central pulmonary embolism is present. Aorta: Thoracic aorta non-dilated. Atherosclerotic calcification is present. Lymph nodes: Within normal limits. Soft tissues: Unremarkable. Bones:Within normal limits for the patient's age. No displaced rib fractures are present. ABDOMEN: Liver: Normal density. No measurable mass. There is no evidence of a pulmonary laceration are perihep atic fluid. Portal, Superior Mesenteric, and Splenic Veins: Unremarkable. Gallbladder and Biliary Tract: Gallbladder is not visualized. No significant biliary ductal dilatati on is present. Pancreas: Normal density, no abnormal calcifications or inflammatory process. Spleen: Normal. No evidence of a splenic laceration or perisplenic hematoma. Adrenals: No suspicious masses are present. Kidneys: Normal size, contour and axis. No radiodense stones or obstructive uropathy. There are bilat eral simple renal cysts. No follow-up is recommended. No evidence of a renal laceration or hematoma . Abdominal Aorta: Abdominal portion non-dilated. Atherosclerotic calcification is present. Bowel: There is diverticulosis of the colon without evidence of acute diverticulitis. The stomach is incompletely distended limiting evaluation. There is no evidence of bowel wall thickening or bowel obstruction. No evidence of appendicitis. Peritoneal Cavity: No ascites, collection or mesenteric inflammatory response. No free air. There i s a 2.9 x 2.3 cm soft tissue mass in the right pelvis abutting the right aspect of the urinary bladde r. (Series 5, image 279). There is a 2.1 x 1.5 cm presacral soft tissue mass. There is a 2.1 x 1.1 cm soft tissue mass to the left of the prostate gland. Lymph Nodes: There is a 2.5 cm enlarged lymph node adjacent to the right external iliac vessels. Bones: Within normal limits for the patient's age. Soft Tissues: Unremarkable. PELVIS: Bladder: Symmetric distention, no gross wall thickening. Reproductive Organs: There is an enlarged prostate gland. Lymph Nodes: Within normal limits. Bones: Within normal limits. IMPRESSION: 1. No acute pulmonary process. 2. Several pulmonary nodules are present. Metastatic disease should be considered. 3. No acute abdominal or pelvic process. 4. No acute fracture. 5. Soft tissue nodule seen in the pelvis which may represent adenopathy. There is a soft tissue mass abutting the right aspect of the urinary bladder. While this may represent adenopathy a urinary zohaib dder mass should also be considered. 6. Enlarged prostate gland. While this may represent benign prostatic hypertrophy, prostatic neoplas tic process cannot be excluded. Follow-up as clinically appropriate. Unexpected findings RADIATION DOSE DELIVERED: 1,378.02mGy.cm Total DLP DATA REPOSITORY: All CT scans at this facility are submitted to the National Radiology Data Registry (NRDR) Dose Index Registry (DIR) with the [employer] (ACR). RADIATION OPTIMIZATION: All CT scans at this facility use at least one of these dose optimization te chniques: automated exposure control; mA and/or kV adjustment per patient size (includes targeted exa ms where dose is matched to clinical indication); or iterative reconstruction.
--- NOTE | 2024-05-08 13:28 | DI.CT_ITS ---
Exam(s) CT HEAD CERVICAL SPINE WO EXAM: CT HEAD CERVICAL SPINE WO CLINICAL HISTORY: Multiple Falls, on thinners. TECHNIQUE: Imaging Protocol: Axial computed tomography images with coronal and sagittal reformatted images were created and reviewed COMPARISON: CT HEAD WITHOUT CONTRAST from 01/14/2013 FINDINGS: CT Head: Ventricles and Extra axial spaces: Normal in size and morphology for the patient's age. Hemorrhage: None. Cerebral parenchyma: There is no mass effect. No evidence of an acute territorial infarct are seen. Midline shift: None. Brainstem/Cerebellum: Normal. Calvarium: Normal. Visualized Paranasal sinuses/Mastoids: Clear. Soft Tissues: Unremarkable. CT Cervical Spine: Bones: No acute fracture or subluxation. Age-appropriate degenerative changes are present in the cerv ical spine. Soft Tissues: Unremarkable. Lung Apices: There is patient motion artifact in the lung apices. Please refer to the CT scan of the chest, abdomen and pelvis for complete details. IMPRESSION: 1. No acute intracranial process. 2. No acute fracture or subluxation in the cervical spine. RADIATION DOSE DELIVERED: 1,331.46mGy.cm Total DLP DATA REPOSITORY: All CT scans at this facility are submitted to the National Radiology Data Registry (NRDR) Dose Index Registry (DIR) with the [employer] (ACR). RADIATION OPTIMIZATION: All CT scans at this facility use at least one of these dose optimization te chniques: automated exposure control; mA and/or kV adjustment per patient size (includes targeted exa ms where dose is matched to clinical indication); or iterative reconstruction.
--- NOTE | 2024-05-08 13:33 | DI.RAD_ITS ---
Exam(s) XR PELVIS AP XR FEMUR LT EXAM: XR PELVIS AP CLINICAL HISTORY: Falls pain. TECHNIQUE: 2D digital imaging was performed of the left pelvis and left femur. Six views were obtai janice. AP pelvis, AP and lateral views of the left femur views were obtained. COMPARISON: CR XR HIP LT COMPLETE AP PELVIS from 08/27/2021 FINDINGS: BONES: No acute fracture is present. No bony destructive lesion is seen. JOINTS: No dislocation present. Degenerative changes are seen in the hips bilaterally and the left kn ee knee. SOFT TISSUE: Normal. IMPRESSION: No acute fracture or dislocation. DATA REPOSITORY: RADIATION DOSE DELIVERED:
--- NOTE | 2024-05-08 13:34 | DI.VRAD_ITS ---
PROCEDURE INFORMATION: Exam: CT Head Without Contrast Exam date and time: 05/08/2024 1:05 PM Age: 88 years old Clinical indication: Injury or trauma; Fall; Blunt trauma (contusions or hematomas); Consciousness not specified TECHNIQUE: Imaging protocol: Computed tomography of the head without contrast. Radiation optimization: All CT scans at this facility use at least one of these dose optimization techniques: automated exposure control; mA and/or kV adjustment per patient size (includes targeted exams where dose is matched to clinical indication); or iterative reconstruction. COMPARISON: No relevant prior studies available. FINDINGS: Brain: There is no acute intracranial hemorrhage. There are no extra-axial fluid collections. There is mild lucency in the cerebral white matter, likely microvascular disease although non-specific. Nunez white differentiation is intact. No evidence of mass. There is no mass effect or midline shift. Cerebral ventricles: The ventricles and sulci are enlarged, consistent with age-related volume loss / atrophy. No hydrocephalus. Paranasal sinuses: Mild mucosal thickening in paranasal sinuses. Mastoid air cells: No significant mastoid effusion. Bones: Unremarkable. No acute fracture. Soft tissues: Unremarkable as visualized. Vasculature: There is vascular calcification. IMPRESSION: 1. No evidence of acute intracranial abnormality. No evidence of acute infarction, hemorrhage, or mass. 2. Senescent changes. PROCEDURE INFORMATION: Exam: CT Cervical Spine Without Contrast Exam date and time: 05/08/2024 1:05 PM Age: 88 years old Clinical indication: Injury or trauma; Fall; Blunt trauma (contusions or hematomas); Consciousness not specified TECHNIQUE: Imaging protocol: Computed tomography of the cervical spine without contrast. Radiation optimization: All CT scans at this facility use at least one of these dose optimization techniques: automated exposure control; mA and/or kV adjustment per patient size (includes targeted exams where dose is matched to clinical indication); or iterative reconstruction. COMPARISON: No relevant prior studies available. FINDINGS: Bones: There are uncinate and facet osteophytes with moderate or severe neural foraminal narrowing C3-C4 through C6-C7 which is greatest and severe bilateral C3-C4, bilateral C5-C6 left C6-C7. Likely no severe spinal stenosis. Lungs: Partially visualized approximately 5 mm as visualized nodular opacity in anterior left upper lobe please see report of chest CT. Soft tissues: Unremarkable. IMPRESSION: No acute fracture. Dictated and Authenticated by: Amada Gay MD. Orderin Ellen Bellamy MD
--- NOTE | 2024-05-08 13:56 | DI.VRAD_ITS ---
PROCEDURE INFORMATION: Exam: CT Chest With Contrast; Diagnostic Exam date and time: 05/08/2024 1:11 PM Age: 88 years old Clinical indication: Other: Trauma fall; Other: Trauma/fall TECHNIQUE: Imaging protocol: Diagnostic computed tomography of the chest with contrast. Radiation optimization: All CT scans at this facility use at least one of these dose optimization techniques: automated exposure control; mA and/or kV adjustment per patient size (includes targeted exams where dose is matched to clinical indication); or iterative reconstruction. Contrast material: OMNI 350; Contrast volume: 100 ml; Contrast route: INTRAVENOUS (IV); COMPARISON: CT HEAD CERVICAL SPINE WO 05/08/2024 1:05 PM FINDINGS: Lungs: Numerous pulmonary nodules bilaterally, largest in the right middle lobe measures 10 mm. Pleural spaces: Unremarkable. No pneumothorax. No pleural effusion. Heart: Unremarkable. No cardiomegaly. No pericardial effusion. Lymph nodes: Unremarkable. No enlarged lymph nodes. Vasculature: Unremarkable. No aortic aneurysm. Bones/joints: Unremarkable. No acute fracture. Soft tissues: Unremarkable. IMPRESSION: 1. No acute traumatic injury. 2. Numerous pulmonary nodules bilaterally, largest in the right middle lobe measures 10 mm. Metastases should be excluded. Additional workup necessary. PROCEDURE INFORMATION: Exam: CT Abdomen And Pelvis With Contrast Exam date and time: 05/08/2024 1:11 PM Age: 88 years old Clinical indication: Other: Trauma fall; Other: Trauma/fall TECHNIQUE: Imaging protocol: Computed tomography of the abdomen and pelvis with contrast. Radiation optimization: All CT scans at this facility use at least one of these dose optimization techniques: automated exposure control; mA and/or kV adjustment per patient size (includes targeted exams where dose is matched to clinical indication); or iterative reconstruction. Contrast material: OMNI 350; Contrast volume: 100 ml; Contrast route: INTRAVENOUS (IV); COMPARISON: CR XR HIP LT COMPLETE AP PELVIS 08/27/2021 8:29 AM FINDINGS: Liver: Normal. No mass. Gallbladder and biliary ducts: Previous cholecystectomy. Pancreas: Normal. No ductal dilation. Spleen: Normal. No splenomegaly. Adrenal glands: Normal. No mass. Kidneys and ureters: Multiple simple cortical renal cysts bilaterally. No hydronephrosis. Stomach and bowel: Unremarkable. No obstruction. No mucosal thickening. Appendix: No evidence of appendicitis. Intraperitoneal space: Unremarkable. No free air. No significant fluid collection. Vasculature: Unremarkable. No abdominal aortic aneurysm. Lymph nodes: Mildly enlarged lymph nodes along the left iliac chain, largest measuring 1.5 cm in short axis. Urinary bladder: Unremarkable as visualized. Reproductive: Prostate gland enlarged and heterogeneous, measuring 5.3 x 6.5 cm. Bones/joints: Unremarkable. No acute fracture. Soft tissues: Soft tissue nodule adjacent to the anterior right bladder measures 2.9 x 2.3 cm. Additional nodule posterior to the rectum measures 1.6 x 2.1 cm. May be enlarged lymph nodes, metastatic disease should be excluded. IMPRESSION: 1. No acute traumatic injury. 2. Soft tissue nodule adjacent to the anterior right bladder measures 2.9 x 2.3 cm. Additional nodule posterior to the rectum measures 1.6 x 2.1 cm. May be enlarged lymph nodes, metastatic disease should be excluded. 3. Mildly enlarged lymph nodes along the left iliac chain, largest measuring 1.5 cm in short axis. 4. Prostate gland enlarged and heterogeneous, measuring 5.3 x 6.5 cm. Recommend correlation with PSA. Dictated and Authenticated by: Taylor Mabry MD. Orderin Ellen Bellamy MD
--- NOTE | 2024-05-08 13:57 | DI.VRAD_ITS ---
PROCEDURE INFORMATION: Exam: XR Pelvis Exam date and time: 05/08/2024 1:25 PM Age: 88 years old Clinical indication: Other: Pain/falls TECHNIQUE: Imaging protocol: Radiologic exam of the pelvis. Views: 1 or 2 view. COMPARISON: CT CHEST/ABD/PEL W 05/08/2024 1:11 PM FINDINGS: Bones/joints: Unremarkable. No acute fracture. Soft tissues: Unremarkable. IMPRESSION: No acute findings. Dictated and Authenticated by: Taylor Mabry MD. Orderin Ellen Bellamy MD
--- NOTE | 2024-05-08 13:58 | DI.VRAD_ITS ---
PROCEDURE INFORMATION: Exam: XR Left Femur Exam date and time: 05/08/2024 1:27 PM Age: 88 years old Clinical indication: Other: Fall/pain TECHNIQUE: Imaging protocol: Radiologic exam of the left femur. Views: 2 views. COMPARISON: CR XR PELVIS AP 05/08/2024 1:25 PM FINDINGS: Bones/joints: Mild degenerative changes at the hip joint. Enthesophytes along the anterior patella. No acute fracture or dislocation. Soft tissues: Unremarkable. IMPRESSION: No acute findings. Dictated and Authenticated by: Taylor Mabry MD. Orderin Ellen Bellamy MD
--- NOTE | 2024-05-08 15:48 | PT.ERNOTE ---
Date of service: 05/08/24 Time of Service: 15:02 PT Emergency Department Note Patient Location: Emergency Room Date of Service: May 08, 2024 10:46 Inpatient Physical Therapy Evaluation Certification Period:? From __05/08/24 ?? Through __05/12/24 I certify the need for these services as being medically necessary and skilled as furnished under this plan of treatment while under my care. Please sign and return within 14 days if you agree with the plan of care listed below.? Thank you for this referral! ? Referring Physician? Date Referring Doctor:? Mia Hughes PT Orders: PT CONSULT for safety consult for d/c, fall safety assessment Precautions: fall risk, incontinence Patient Profile/Admitting Diagnosis:? The patient is an 88 yo male who came to the ED via ambulance on 05/08/24 with multiple falls in the last couple of days. Family reports that he fell twice yesterday after getting out of a car going to the inside and then fell once today. Yesterday the falls were witnessed and were mechanical. Today the fall was unwitnessed family found him on the floor next to his bed. Patient states that he was trying to take his pajamas off when he lost his balance and fell over. Patient has been struggling with left sciatica with his left LE giving out and leading to his falls witih pain over left anterior thigh and medial knee. Xrays of femur and pelvis were negative. 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 Punch biopsy: Left upper nasal sidewall/[place] upper medial [place] [facility] [place]it[place] (Chronic 08/30/11) replacement added 08/2011 (along with T4) Pure hypercholesterolemia (Chronic 03/17/06) risk calc >20% 12/2006, goal LDL <100; metabolic syndrome Morbid obesity (Chronic 03/17/89) BMI 39 Lower urinary tract symptoms (LUTS) (Chronic) [facility] 03/24/15 Kidney disease, chronic, stage III (moderate, 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 Motta 04/14/23istory of malignant melanoma Mohs surgery October 2021 Surgical History Ectropion of left eye (11/13/22) [place] [facility] [place]vo[place]O Mohs micrographic surgery for skin cancer 11/12/21 [place] [facility] [place] proven melanoma in-situ located on the left medial cheek 12/18/21: [facility] [facility] [place]06[place]19[place]) Colonoscopy - IV Sedation (04/21/05) Cholecystectomy (01/19/1963) Appendectomy (01/19/1963) Medications: See chart Social History/Home Situation: Normally lives alone in [place]. Two story home with only bathroom upstairs. Normally drives, cooks and cleans. Daughter reports he has not been doing much to care for the home over the past couple of weeks. She called his PCP to request an outpatient PT referral for his sciatica. Has a walker and a commode that his used to use. Subjective: I could walk if my knee didn't hurt Objective: Incontinent of stool prior to mobilization. Able to perform some pericare but needing some assist secondary to not cleaning areas on his posterior thighs. able to don depends with increased time and effort in sitting intially with close cga for balance to pull up in standing. Mental Status: Patient is alert and oriented. Very hard of hearing. Pain: C/o sciatica with pain in anterior left thigh with radiation to medial knee Vital Signs: on telemetry throughout session. ROM/Strength: Upper extremities: Able to move against gravity Lower extremities: pain and limited ROM/strength of left knee and hip s/p his fall this morning. Sensation: No reports of numbness or tingling Soft tissue/edema: Edema observed in left thigh into his knee. Bed Mobility: Supine to sit with close stand by supervision with patient initially requesting assist. Able to perform with significant effort Transfers: Sit to/from stand cga 2x with pain and increased effort with bilateral UE assist Gait: Ambulated 50 feet with walker with cga/min assist, mildly unsteady with decreased left stance time. Trunk flexion throughout. C/o left medial knee pain Balance: CG/min assist with standing at walker. [facility] AM-PAC 6 clicks Basic Mobility Inpatient Short Form: Raw Score:???17? CMS Score: 50.57% Informed Consent/Education:? Patient instructed in purpose of PT consult and plan of care and is agreeable Assessment:? Patient is an 88 yo male who came to the ED via ambulance on 05/08/24 with multiple falls in the last couple of days. Patient presents with left LE pain, decreased strength, decreased functional mobility, decreased balance and difficulty with ambulation. The patient would benefit from skilled physical therapy services to improve these impairments to maximize function and safety. Patient is assessed as:? Low 16217?? complexity based on the following: History: age, multiple falls, bathroom on second floor only Examination: see above Presentation: Stable and uncomplicated? Decision Making:? Low (0 history, 1-2 exam, stable/predictable, easy 20) Physical Therapy Goals: 3 days Able to get in/out of bed independently as needed for home. Able to perform sit to/from stand independently as needed for home. Able to walk 100 feet with rolling walker as needed independently as needed for home. Able to go up and down 2-3 steps with 1 rail with contact guard assist only. Independent with home exercise program Plan of Care/Treatment Plan: 1x/day, 7 days/week x 1 week. Plan of care has been reviewed with the AUTOMATIC COIL MACHINE OPERATOR providing the service under Physical Therapy direction. Initiate Physical Therapy intervention for strengthening, bed mobility, transfers, gait, stairs, balance training, use of assistive device. DISCHARGE RECOMMENDATIONS: discharge to home with HHPT Informed consent Prior to the start and throughout the course of the examination and treatment, patient was made aware of the specifics and purpose of the physical assessment and treatment procedures. Appropriate draping procedures were utilized to protect modesty where applicable. Billing Charges: Treatment Units Time Duration Manual Therapy(26196) Hands-on techniques to modulate pain increase joint range of motion reduce or eliminate soft tissue swelling, inflammation, or restriction facilitate relaxation and improve contractile and non-contractile tissue extensibility ? ? Therapeutic Procedures (09599) Instruction in therapeutic exercises to develop strength and endurance, range of motion and flexibility. HEP instruction and review: Provided skilled instruction in proper exercise performance: Provided skilled manual cues to facilitate proper muscle recruitment and/or movement pattern Neurological Re-Education(33431) To improve balance, coordination, kinesthetic and proprioceptive sensations. ? ? Ultrasound(29540) To promote healing. ? ? Gait Training(52668) ? ? Therapeutic Activity(10406) Instruction in dynamic activities with one on one patient contact by the provider to improve functional performance as follows: 2 ? 31 ? Self Care Training(70016) ? ? E-Stim (Attended)(86704) ? ? Low IE(68569) 1 11 Mod IE(50746) ? ? High IE(80642) ? ? Time Coded Treatment Time ? 31 Total Treatment Time ? 42
--- NOTE | 2024-05-08 16:00 | DI.CT_ITS ---
Exam(s) CT LOWER EXTREMITY LT WO EXAM: CT LOWER EXTREMITY LT WO CLINICAL HISTORY: knee Pain, Unable to walk. TECHNIQUE: Imaging Protocol: Axial computed tomography images with coronal and sagittal reformatted images were created and reviewed. COMPARISON: CR,XR XR FEMUR LT from 05/08/2024 FINDINGS: Bones: The osseous structures and articular surfaces are intact. Bony alignment is satisfactory. E nthesophytes at the anterior patella. There are degenerative changes of the knee particularly in the patellofemoral joint characterized by osteophytes. There is a very small amount of fluid in the óscar nt space. No lytic or sclerotic lesions are identified. Soft Tissues: Atherosclerotic calcification is present. IMPRESSION: No acute fracture or dislocation. RADIATION DOSE DELIVERED: 192.94mGy.cm Total DLP 192.94mGy.cm Total DLP DATA REPOSITORY: All CT scans at this facility are submitted to the National Radiology Data Registry (NRDR) Dose Index Registry (DIR) with the [employer] (ACR). RADIATION OPTIMIZATION: All CT scans at this facility use at least one of these dose optimization te chniques: automated exposure control; mA and/or kV adjustment per patient size (includes targeted exa ms where dose is matched to clinical indication); or iterative reconstruction.
--- NOTE | 2024-05-08 17:05 | CMPROGNOTE_ITS ---
Date of service: 05/08/24 Time of Service: 17:05 Care Management Progress Note Progress Note Text Progress Note Text: CM was asked to meet with Suresh and his daughter to evaluate if he meets criteria for inpatient admission or Observation. Suresh has fallen 3 times in the past 24 hours. each was a mechanical fall. The one this morning was secondary to losing his balance while removing pajama bottoms. Suresh's daughter Iza was present and engaged in the conversation as well. When PT evaluated Suresh the verbal report to the provider seemed to indicate that he was unable to ambulate, even with a walker. The final PT evaluation recommended home health PT however, stating that Suresh had walked 50 feet with cga with a walker. Home health PT was recommended and ordered and CM sent the referral to [facility] and contacted the distribution accounting clerk nurse. Iza understood the assessment and went home to prepare for Suresh's return. Discharge Potential Discharge Needs: PCP F/U Appt Transportation: Private vehicle Social Determinants of Health Screening Will the Patient Participate in the Screening?: Declined to provide
--- NOTE | 2024-05-08 18:34 | DI.VRAD_ITS ---
PROCEDURE INFORMATION: Exam: CT Left Lower Extremity, Knee Exam date and time: 05/08/2024 4:26 PM Age: 88 years old Clinical indication: Other: Knee pain, unable to walk TECHNIQUE: Imaging protocol: CT of the left lower extremity without contrast was performed. Exam focused on the knee. Radiation optimization: All CT scans at this facility use at least one of these dose optimization techniques: automated exposure control; mA and/or kV adjustment per patient size (includes targeted exams where dose is matched to clinical indication); or iterative reconstruction. COMPARISON: US LOWER EXTREMITY VENOUS LT 06/07/2021 3:23 PM FINDINGS: Bones/joints: CT imaging through the left knee reveals no acute fracture or dislocation. The medial and lateral joint spaces appear maintained. There is sharpening of the medial tibial spine. There are osteophytes along the posterior margin of the patella suggesting osteoarthritis. There is only a small amount of fluid in the joint space. Soft tissues: No gross focal soft tissue swelling, fluid collection, or soft tissue gas is seen at the knee. IMPRESSION: No acute fracture or dislocation seen at the left knee. Small amount of fluid in the joint space, nonspecific. Dictated and Authenticated by: Jcarlos Dela Cruz MD. Orderin Ellen Bellamy MD
--- NOTE | 2024-05-08 18:48 | W.ED.FU ---
Follow Up Plan: Care was accepted from [facility] pending CT extremity. She has small effusion left knee, patient was placed in a hinged knee brace and a walker was supplied. Patient will follow-up with primary care physician and orthopedics. There is a rehab stay that care management is expediting and home health has been set up for home. Patient declines any additional needs at this time discharged home in the care of his daughter
== END 2024-05-08 19:41 | disposition home or self-care (01) ==
PROVIDERS: Registered Nurse Emergency; Emergency Provider Physician Assistant; PCP Family Medicine
DX: M79.662 Pain in left lower leg (principal); R91.8 Other nonspecific abnormal finding of lung field
CPT/HCPCS: 73552; 74177; 80053; 87426; 93005; 96360; 97161; 97530; 99284; 70450; 71260; 72125; 72170; 73700; 81003; 81015; 83735; 84484; 85025; 85610; 85730; 93010; J3490

== ENCOUNTER → 2024-05-17 09:49 | Outpatient (BNVA) | payer MEDICARE, SELFPAY | PROVIDERS: PCP Family Medicine; Referring Provider Family Medicine; Visit Provider Podiatrist | DX: L60.3 Nail dystrophy (principal); B35.1 Tinea unguium; I73.89 Other specified peripheral vascular diseases; E11.9 Type 2 diabetes mellitus without complications; I87.2 Venous insufficiency (chronic) (peripheral); R25.2 Cramp and spasm; L60.8 Other nail disorders; R60.0 Localized edema; L65.9 Nonscarring hair loss, unspecified; R23.8 Other skin changes; L60.2 Onychogryphosis | CPT/HCPCS: 11721; 93922; 99204 ==

== ENCOUNTER → 2024-09-21 10:02 | Outpatient (BNVA) | payer MEDICARE, SELFPAY | PROVIDERS: PCP Family Medicine; Referring Provider Family Medicine; Visit Provider Podiatrist | DX: L60.3 Nail dystrophy (principal); B35.1 Tinea unguium; E11.9 Type 2 diabetes mellitus without complications; I73.89 Other specified peripheral vascular diseases; I87.2 Venous insufficiency (chronic) (peripheral); R09.89 Other specified symptoms and signs involving the circulatory and respiratory systems; R60.0 Localized edema; I83.93 Asymptomatic varicose veins of bilateral lower extremities; L65.9 Nonscarring hair loss, unspecified; R23.8 Other skin changes; L60.2 Onychogryphosis; L60.8 Other nail disorders | CPT/HCPCS: 11721 ==

== ENCOUNTER → 2025-02-01 09:44 | Outpatient (BNVA) | payer MEDICARE, SELFPAY | PROVIDERS: PCP Family Medicine; Referring Provider Family Medicine; Visit Provider Podiatrist | DX: L60.3 Nail dystrophy (principal); B35.1 Tinea unguium; E11.22 Type 2 diabetes mellitus with diabetic chronic kidney disease; N18.30 Chronic kidney disease, stage 3 unspecified; I73.89 Other specified peripheral vascular diseases; I87.2 Venous insufficiency (chronic) (peripheral); R09.89 Other specified symptoms and signs involving the circulatory and respiratory systems; R60.0 Localized edema; I83.93 Asymptomatic varicose veins of bilateral lower extremities; L65.9 Nonscarring hair loss, unspecified; R23.4 Changes in skin texture; L60.2 Onychogryphosis; L60.8 Other nail disorders | CPT/HCPCS: 11721 ==